=== PATIENT | female | born 1950 ===

== ENCOUNTER → 2020-02-06 10:41 | Outpatient (CLI) | payer MEDICARE, SELFPAY ==
--- NOTE | ~2020-02-06 | MM_ITS ---
EXAMINATION: MM screening young BI w girish HISTORY: Screening TECHNIQUE: Craniocaudal and mediolateral oblique 3-D tomosynthesis images were obtained and synthetic 2-D images were generated. CAD analysis was submitted and interpreted. COMPARISON: Comparison to multiple prior studies sequentially, with oldest reviewed study dated 01/06. BREAST PARENCHYMAL COMPOSITION: There are scattered areas of fibroglandular density. FINDINGS: Decreased size of left breast masses which were previously characterized as cysts by ultras ound. There is no evidence of suspicious mass, calcification, or architectural distortion to suggest malignancy in either breast. IMPRESSION: 1. No mammographic evidence of malignancy. 2. Recommend routine screening mammography in one year. BI-RADS Category 2: Benign finding(s). Reviewed, dictated and finalized at location A.
== END ==
PROVIDERS: PCP Family Medicine; Visit Provider Physician Assistant
DX: Z12.31 Encounter for screening mammogram for malignant neoplasm of breast (principal)
CPT/HCPCS: 77063; 77067

== ENCOUNTER 2021-03-30 20:00 | Emergency (ER) | payer MEDICARE, SELFPAY ==
[2021-03-30] VITALS (13 sets, daily range): BP systolic 162–210; BP diastolic 80–97; PULSE 58–78; RESP 11–23; TEMP 36.6; O2SAT 94–99
--- NOTE | ~2021-03-30 | XR_ITS ---
EXAMINATION: XR chest 1V portable DATE: 03/30/2021 22:02 INDICATION: Dizziness. TECHNIQUE: A single frontal view of the chest was obtained. COMPARISON: Chest single view 10/08/2017 FINDINGS: The chest demonstrates clear lungs without pneumonia, pleural effusion, or pneumothorax. Th e heart size is normal. IMPRESSION: 1. No acute cardiopulmonary disease. Reviewed, dictated and finalized at location A.
--- NOTE | ~2021-03-30 | CT_ITS ---
EXAMINATION: CT brain wo con DATE: 03/30/2021 23:17 INDICATION: Dizziness TECHNIQUE: Computed tomography (CT) of the head was performed without intravenous contrast. The mA wa s adjusted according to patient size. Iterative reconstruction technique was employed. Exam dose: 52 9.67 mGy-cm total exam DLP. COMPARISON: 10/08/2017 CT brain FINDINGS: Bilateral carotid siphon internal carotid artery calcifications are noted. Empty sella is again noted. No intracranial mass lesion or hemorrhage or cerebrovascular accident, midline shift or mass effect. Normal ventricular size. No subdural or epidural hematoma. The mastoid air cells and included paranasal sinuses are unremarkab le. No fracture or bone destruction of the cranial vault. IMPRESSION: Cerebral atherosclerosis Empty sella No acute intracranial abnormality or significant change since 10/08/2017 Reviewed, dictated and finalized at Location A. Reviewed, dictated and finalized at location A.
--- NOTE | 2021-03-30 21:49 | ED.GENADULT ---
HPI - General Adult General Chief complaint: Recheck/Abnormal Lab/Rx Stated complaint: High BP, lightheaded Time Seen by Provider: 03/30/21 21:45 Source: RN notes reviewed History of Present Illness HPI narrative: Patient presents emergency department from home for dizziness. Patient describes her dizziness as a feeling of lightheadedness she states has been ongoing since 6 PM this evening. She states that she took her blood pressure at home and it was elevated she came to the emergency department for further evaluation. She states she had similar episode 2 days ago and got in the urgent care and at that time have been given meclizine she denies any fevers or chills, headache, vision changes, numbness or tingling in extremities, chest pain, shortness of breath abdominal pain nausea vomiting or any other symptoms. Patient states she does have a history of hypertension and has taken her medications as prescribed Related Data Home Medications Medication Instructions Recorded Confirmed calcium carbonate 600 mg calcium 600 mg PO DAILY 09/29/19 02/17/21 (1,500 mg) tablet Allergies Allergy/AdvReac Type Severity Reaction Status Date / Time lisinopril AdvReac Unknown cough Verified 03/30/21 21:53 Review of Systems Review of Systems: Gen.: Denies fevers or chills Eyes: Denies eye pain or visual change ENT: Denies congestion Respiratory: Denies shortness of breath or cough CV: Denies chest pain or palpitations GI: Denies abdominal pain nausea, emesis or diarrhea Musculoskeletal: Denies back pain or muscle pain Neuro: Reports feeling of lightheadedness Skin: Denies rash Except as documented, all other systems reviewed and negative [facility] Past Medical History Medical History H/O bone density study (~2017) Hepatitis C antibody test negative (04/17/17) Family History Family History Father Family history of elevated blood lipids Mother Family history of elevated blood lipids Other No family history of cardiovascular disease No family history of malignant neoplasm Social History Social History Smoking status: Former smoker Alcohol intake: current Exam Narrative: APPEARANCE: No acute distress, nontoxic, resting in bed EYES: EOMI, PERRL HEENT: Normocephalic, atraumatic, OMM RESPIRATORY: No respiratory distress Clear to auscultation bilaterally with no rhonchi wheezing or rales. CARDIOVASCULAR: Regular rate and rhythm without murmurs rubs or gallops. ABDOMINAL: Soft, nontender, nondistended, no rebound or guarding MUSCULOSKELETAl: Moves all extremities. No clubbing, cyanosis or edema. NEURO: Awake and alert x 4. Following commands, speech normal, no focal deficits SKIN:: Warm, dry. No rashes lesions or abrasions PSYCHIATRIC: Normal affect/mood, Course Course Emergency Course: Patient states she [facility] the [facility] but was not prescribed and states that it did help her will be given at this time Antivert given ED states she is feeling much better Discussed with patient results of workup and diagnosis. Discussed need for follow-up with primary care, proper use of medication, and reasons to return to the emergency department. Patient understands and agrees to current treatment plan Vital Signs Vital signs: Vital Signs Temperature 98 F 03/30/21 20:04 Pulse Rate 70 03/30/21 20:04 Respiratory Rate 18 03/30/21 20:04 Blood Pressure 173/94 H 03/30/21 20:04 Pulse Oximetry 95 03/30/21 20:04 Temperature 98 F 03/30/21 20:04 Pulse Rate 58 L 03/31/21 00:16 Respiratory Rate 15 03/31/21 00:16 Blood Pressure 166/90 H 03/31/21 00:16 Pulse Oximetry 97 03/31/21 00:16 Medical Decision Making [facility] Narrative Medical decision making narrative: Patient's vertigo is felt to be likely peripheral in origin. There is no diplo
[2021-03-30 22:19] LABS: Basophils Absolute Auto 0.1 K/mm3 (0.0-0.1); Basophils Percent Auto 0.7 % (0.2-1.2); Eosinophils Absolute Auto 0.2 K/mm3 (0-0.3); Eosinophils Percent Auto 2.5 % (0-4.4); Hematocrit 41.7 % (37.0-47.0); Hemoglobin 14.1 g/dL (12.0-15.0); Immature Granulocyte Absolute 0.02 K/mm3 (0.00-0.031); Immature Granulocyte Percent A 0.3 % (0-0.5); Lymphocytes Absolute Auto 2.73 K/mm3 (0.9-3.2); Lymphocytes Percent Auto 36.5 % (18.3-44.2); Mean Corpuscular HGB Conc 33.8 g/dl (32-36); Mean Corpuscular Hemoglobin 30.9 pg (26-34); Mean Corpuscular Volume 91.4 fl (80-100); Monocytes Absolute Auto 0.6 K/mm3 (0.1-0.6); Monocytes Percent Auto 7.6 % (2.6-8.5); Neutrophils Absolute Auto 3.9 K/mm3 (1.3-6.7); Neutrophils Percent Auto 52.4 % (45.5-73.1); Platelet Count Result 202 k/mm3 (150-375); Red Blood Count 4.56 M/mm3 (4.2-5.4); Red Cell Distribution Width 12.1 % (11.5-14.5); White Blood Count 7.5 K/mm3 (4.5-10.0)
[2021-03-30 22:20] LABS: Add Urine Microscopic? NO; Appearance Urine Clear (Clear); Bilirubin Urine Negative (Negative); Blood Urine Negative (Negative); Color Urine Colorless (Yellow); Glucose Urine UA Negative (Negative); Ketones Urine Negative (Negative); Leukocyte Esterase Ur Negative LEU/UL (Negative); Nitrate Urine Negative (Negative); Protein Urine Negative (Negative); Specific Grav Ur 1.005 (1.001-1.035); Urobilinogen Urine Negative mg/dL (<2.0)
[2021-03-30 22:28] LABS: INR 0.9; Prothrombin Time 11.6 Seconds (11.1-14.7)
[2021-03-30 22:29] LABS: Partial Thromboplastin Time 27.2 SECONDS (22.3-36.8)
[2021-03-30 22:32] LABS: Alanine Aminotransferase 32 U/L (4-35); Albumin Level 4.8 g/dL (3.5-5.1); Alkaline Phosphatase 95 U/L (38-126); Anion Gap 9 mmol/L (8-16); Aspartate Amino Transferase 49 U/L (14-36); Bilirubin,Total 0.5 mg/dL (0.2-1.3); Blood Urea Nitrogen 20 mg/dL (7-17); Calcium 9.3 mg/dL (8.4-10.2); Carbon Dioxide 28 mmol/L (22-30); Chloride 100 mmol/L (98-107); Estimated Glomerular Filt Rate > 60; Glucose 113 mg/dL (65-110); Potassium 3.8 mmol/L (3.4-5.0); Sodium 137 mmol/L (137-145)
[2021-03-30] MEDS: cloNIDine HCL 0.1 MG TABLET PO (23:47)
[2021-03-31] VITALS: PULSE 59; RESP 13; O2SAT 98
[2021-03-31 00:01] VITALS: BP 157/82; PULSE 61; RESP 15; O2SAT 98
[2021-03-31 00:15] VITALS: PULSE 58; RESP 13; O2SAT 97
--- NOTE | 2021-03-31 00:15 | ECG_ITS ---
Measurements Intervals Hardy Rate: 57 P: 46 FL: 189 QRS: -9 QRSD: 90 T: 11 QT: 429 QTc: 420 Interpretive Statements SINUS BRADYCARDIA VOLTAGE CRITERIA FOR LVH NONSPECIFIC ST ELEVATION IN ANTERIOR LEADS BASELINE ARTIFACT- II, III, AVF, V1, V3-V6 BORDERLINE ECG Electronically Signed On 03-31-2021 5:47:26 CDT by Enoc Abreu D.O.
[2021-03-31 00:16] VITALS: BP 166/90; PULSE 58; RESP 15; O2SAT 97
--- NOTE | 2021-03-31 00:20 | PC.NURSE ---
Pt in ED H2, c/o elevated bp and lightheadedness. denies dizziness. seen at urgent care 2 days ago for htn and dizziness and given meclizine. takes bp med at home in am. denies chest pain. ambulatory c steady, even, unassisted gait. no s/s of distress.
[2021-03-31] MEDS: MECLIZINE HCL 12.5 MG TABLET PO (00:38)
--- NOTE | 2021-03-31 00:42 | PC.NURSE ---
Lab notified to add troponin as ordered by ED MD.
[2021-03-31 00:59] LABS: Troponin I < 0.012 ng/mL (0.000-0.034)
[2021-03-31 01:30] VITALS: BP 116/57; PULSE 56; RESP 18; O2SAT 98
== END 2021-03-31 01:32 | disposition home or self-care (01) ==
PROVIDERS: Emergency Provider Emergency Medicine; PCP Family Medicine
DX: R42 Dizziness and giddiness (principal); I10 Essential (primary) hypertension; Z87.891 Personal history of nicotine dependence; R00.1 Bradycardia, unspecified; R94.31 Abnormal electrocardiogram [ECG] [EKG]; I67.2 Cerebral atherosclerosis
CPT/HCPCS: 36415; 70450; 71045; 80053; 81003; 84484; 85025; 85610; 85730; 93005; 99284; A9270

== ENCOUNTER → 2021-04-30 12:03 | Outpatient (CLI) | payer MEDICARE, SELFPAY ==
--- NOTE | ~2021-04-30 | MM_ITS ---
EXAMINATION: MM screening young BI w girish HISTORY: Screening TECHNIQUE: Craniocaudal and mediolateral oblique 3-D tomosynthesis images were obtained and synthetic 2-D images were generated. CAD analysis was submitted and interpreted. COMPARISON: Comparison to multiple prior studies sequentially, with oldest reviewed study dated 07/2016. BREAST PARENCHYMAL COMPOSITION: Breast composed of scattered areas of fibroglandular density. FINDINGS: The right breast is stable without evidence for malignancy. There are focal asymmetries in the central-the outer aspect of the left breast on CC view. IMPRESSION: 1. Developing left breast asymmetries. 2. Additional mammographic views and possible breast ultrasound are recommended. BI-RADS Category 0: Incomplete: Needs additional imaging evaluation. Reviewed, dictated and finalized at location A. IMPRESSION: 1. Developing left breast asymmetries. 2. Additional mammographic views and possible breast ultrasound are recommended . BI-RADS Category 0: Incomplete: Needs additional imaging evaluation.
--- NOTE | ~2021-04-30 | DEXA_ITS ---
Bone Density Report Name: Obinna Espinosa Age: 70 Sex: Female Ethnicity: White Date of : 1950 Indication: postmenopausal osteoporosis; height loss; Referring Provider: Shirley Cabrera Study: Bone densitometry was performed. Exam Date: April 30, 2021 Accession number: [id number] Bone Density: Region BMD T-score Z-score Classification AP Spine (L1-L4) 0.808 -2.2 0.1 Osteopenia Femoral Neck (Left) 0.583 -2.4 -0.4 Osteopenia Total Hip (Left) 0.760 -1.5 0.2 Osteopenia Femoral Neck (Right) 0.644 -1.8 0.1 Osteopenia Total Hip (Right) 0.826 -0.9 0.7 Normal Total Hip Mean 0.793 -1.2 0.5 Osteopenia World Health Organization criteria for BMD impression classify patients as: Normal (T-score at or above -1.0), Osteopenia (T-score between -1.0 and -2.5), or Osteoporosis (T-score at or below -2.5). 10-year Fracture Risk(1): Major Osteoporotic Fracture 14% Hip Fracture 3.7% Reported Risk Factors: [place] (), Neck BMD=0.583, BMI=29.7 (1) FRAX(R) Version 3.08. Fracture probability calculated for an untreated patient. Fracture probability may be lower if the patient has received treatment. Previous Exams: Region Exam Age BMD T-score BMD Change BMD Change Date g/cm2 vs Baseline vs Previous AP Spine(L1-L4) 04/30/2021 70 0.808 -2.2 0.074* 0.077* 01/17/2018 67 0.731 -2.9 -0.003 -0.003 12/11/2015 65 0.735 -2.8 Total Hip(Left) 04/30/2021 70 0.760 -1.5 -0.010 -0.002 01/17/2018 67 0.762 -1.5 -0.009 -0.009 12/11/2015 65 0.771 -1.4 Total Hip(Right) 04/30/2021 70 0.826 -0.9 0.009 0.015 01/17/2018 67 0.812 -1.1 -0.006 -0.006 12/11/2015 65 0.818 -1.0 *Denotes significance at 95% confidence level, LSC for AP Spine = 0.022 g/cm2, LSC for Total Hip = 0.027 g/cm2 Clinical Information Provided by Patient: Has used the following medications: Vitamin D, Calcium Patient maximum height was 59 Menopause Age: 42 Does not regularly consume dairy products Onset of menses at age 10 Number of children 3 Impression: The patient has low bone mass, based on the Left Femoral Neck T-score. The patient has an estimated ten-year risk of hip fracture of 3.7% and an estimated ten-year risk of major fracture of 14%, based on the WHO FRAX algorithm. No significant bone loss was observed. Discussion: BONE DENSITY
== END ==
PROVIDERS: PCP Family Medicine; Visit Provider Physician Assistant
DX: Z12.31 Encounter for screening mammogram for malignant neoplasm of breast (principal); Z78.0 Asymptomatic menopausal state; R92.8 Other abnormal and inconclusive findings on diagnostic imaging of breast; M85.89 Other specified disorders of bone density and structure, multiple sites
CPT/HCPCS: 77063; 77067; 77080

== ENCOUNTER → 2021-05-21 09:06 | Outpatient (CLI) | payer MEDICARE, SELFPAY ==
--- NOTE | ~2021-05-21 | MM_ITS ---
EXAMINATION: MM diagnostic young LT w girish HISTORY: Left breast asymmetry on screening mammogram TECHNIQUE: Additional 3-D tomosynthesis images of the left breast were performed and synthetic 2-D im ages were generated. CAD analysis was submitted and interpreted. COMPARISON: 04/30/2021, 02/06/2020, 01/20/2019, 01/21/2018, 01/17/2018 FINDINGS: There is a return to baseline fibroglandular appearance with spot compression of the left b reast in the area questioned on screening mammogram. IMPRESSION: 1. No mammographic evidence of malignancy. 2. Recommend routine screening mammography in one year. BI-RADS Category 1: Negative Reviewed, dictated and finalized at location A. STRIPPER
== END ==
PROVIDERS: PCP Family Medicine; Visit Provider Physician Assistant
DX: R92.8 Other abnormal and inconclusive findings on diagnostic imaging of breast (principal)
CPT/HCPCS: 77061; 77065; G0279

== ENCOUNTER → 2022-06-04 14:18 | Outpatient (CLI) | payer MEDICARE, SELFPAY ==
--- NOTE | ~2022-06-04 | MM_ITS ---
EXAMINATION: MM screening [facility] BI w girish HISTORY: Screening mammogram TECHNIQUE: Craniocaudal and mediolateral oblique 3-D tomosynthesis images were obtained and synthetic 2-D images were generated. CAD analysis was submitted and interpreted. COMPARISON: 05/21/2021, 04/30/2021, 02/06/2020 BREAST PARENCHYMAL COMPOSITION: There are scattered areas of fibroglandular density. FINDINGS: No suspicious mass, calcification, or architectural distortion are identified in either meghann ast to suggest malignancy. There has been no suspicious interval change. IMPRESSION: 1. No mammographic evidence of malignancy. 2. Recommend routine screening mammography in one year. BI-RADS Category 1: Negative Reviewed, dictated and finalized at location A. [employer] SERV[employer]
== END ==
PROVIDERS: PCP Family Medicine; Visit Provider Family Medicine
DX: Z12.31 Encounter for screening mammogram for malignant neoplasm of breast (principal)
CPT/HCPCS: 77063; 77067

== ENCOUNTER 2022-08-27 10:00 | Outpatient (RCR) | payer MEDICARE, SELFPAY ==
--- NOTE | 2022-07-31 15:48 | PTOPEVAL1 ---
Assessment and note entered by Samaria Raman, PT, DPT Evaluation Information Assessment Status Evaluation Diagnosis R shoulder pain Onset 1 month Subjective Information Pt states she was playing pickleball last month. She states she felt an irritating pain in her shoulder but thought she just overworked it so she continued to play. She states now her shoulder hurts often especially with overhead movements. She reports her pain as 0/10 at rest and 4/10 with overhead motions. She reports no troubles sleeping and can even lay on her R shoulder. Reported Pain Level Pain Score 0: Self Report Assessment PT Clinical Summary Obinna Putnam) presents to therapy today for her initial evaluation with a diagnosis of R shoulder pain. Today she demonstrates great shoulder ROM that is nearly equal to her uninvolved side. She demonstrates good shoulder strength with slight weakness and pain with resistance into flexion and ext rot. Skilled physical therapy services are indicated to improve strength, pain with overhead motion, to return to pickleball without limitation , and to return to baseline function. Plan of Care Interventions Manual Therapy,Neuro Re-education,Patient/ Caregiver Educati,Therapeutic Activities, Therapeutic Exercise PT Services Indicated Yes Treatment Frequency and 1x/wk for 4 wks Duration These treatments will address the objective and functional deficits as defined above. The patient will be advanced safely and appropriately in order for the patient to progress towards his/her prior level of function. Additional exercises will be introduced and as well as a comprehensive home exercise program upon discharge, if needed, ?to ensure carryover of functional gains achieved in the clinic. This treatment plan has been reviewed and agreement upon by the patient.
--- NOTE | 2022-08-27 10:35 | PTOPDC ---
Assessment and note entered by Samaria Raman, PT, DPT Evaluation Information Assessment Status Discharge Diagnosis R shoulder pain Onset 1 month Subjective Information Pt states other days she does and feels like she is ready to start playing pickleball again and other days she states her shoulders just aches. Pt states she can lift her coffee pot and plates to the top shelf without an increase in shoulder pain . Pt reports 80-90% improvement in overall symptoms. Reported Pain Level Pain Score 3: Self Report Assessment PT Clinical Summary Obinna Caruso presents to therapy today for her progress report following 4 visits of skilled therapy to treat her R shoulder pain. Today she reports no pain most days with functional tasks. She has met or progressed well towards all of her therapy goals and no longer requires skilled therapy services at this time. She will be discharged at this time with instructions to continue her HEP and follow up with referring provider if needed. Plan of Care PT Services Indicated No Treatment Frequency and discharge Duration
== END 2022-08-27 12:42 | disposition home or self-care (01) ==
LOC: ANHGOSHPT 10:00
PROVIDERS: PCP Family Medicine; Visit Provider Nurse Practitioner
DX: M25.511 Pain in right shoulder (principal)
CPT/HCPCS: 97110; 97112; 97140; 97161; 97530

== ENCOUNTER → 2022-11-19 10:04 | Outpatient (CLI) | payer MEDICARE, SELFPAY ==
--- NOTE | ~2022-11-19 | XR_ITS ---
Right Shoulder Technique: AP and scapular Y views were obtained. Clinical History: Pain Findings: No fracture or dislocation is seen. Osseous alignment is anatomic. The glenohumeral and acr omioclavicular joint spaces are preserved. Soft tissues are unremarkable. Impression: Unremarkable right shoulder radiographs. Reviewed, dictated and finalized at [facility]. Impression: Unremarkable right shoulder radiographs.
== END ==
PROVIDERS: PCP Family Medicine; Visit Provider Family Medicine
DX: M25.511 Pain in right shoulder (principal)
CPT/HCPCS: 73030

== ENCOUNTER 2023-09-14 11:31 | Outpatient (CLI) | payer MEDICARE, SELFPAY ==
--- NOTE | ~2023-09-14 | MM_ITS ---
EXAMINATION: MM screening [facility] BI w girish HISTORY: Screening TECHNIQUE: Craniocaudal and mediolateral oblique 3-D tomosynthesis images were obtained and synthetic 2-D images were generated. CAD analysis was submitted and interpreted. COMPARISON: Comparison to multiple prior studies sequentially, with oldest reviewed study dated 01/20. BREAST PARENCHYMAL COMPOSITION: Not dense: There are scattered areas of fibroglandular density. FINDINGS: There is no evidence of suspicious mass, calcification, or architectural distortion to sugg est malignancy in either breast. There has been no suspicious interval change. IMPRESSION: 1. No mammographic evidence of malignancy. 2. Recommend routine screening mammography in one year. BI-RADS Category 1: Negative Reviewed, dictated and finalized at location A.
== END 2023-09-14 11:32 ==
PROVIDERS: PCP Family Medicine; Visit Provider Family Medicine
DX: Z12.31 Encounter for screening mammogram for malignant neoplasm of breast (principal)
CPT/HCPCS: 77063; 77067

== ENCOUNTER 2023-11-15 13:35 | Outpatient (CLI) | payer MEDICARE, SELFPAY ==
--- NOTE | ~2023-11-15 | XR_ITS ---
XR knee LT min 4V DATE: 11/15/2023 14:15 INDICATION: Left knee pain TECHNIQUE: Standing AP, PA and lateral views. Ragland view. COMPARISON: None FINDINGS: There is prominent patellar enthesopathy at the insertion of the quadriceps tendon. There i s moderate periarticular spurring of the patella. There is severe joint space narrowing and prominent vertebral spurring at the lateral compartment. There is hypertrophic change of the lateral tibial sp ine. Small suprapatellar knee joint effusion is suggested. No fracture, dislocation, periosteal reaction or bone destruction, or radiopaque intra-articular loos e body or chondrocalcinosis is noted. IMPRESSION: Osteoarthritis involving particularly severely the lateral compartment Reviewed, dictated and finalized at location B. IMPRESSION: Osteoarthritis involving particularly severely the lateral compartm ent
== END 2023-11-15 13:36 ==
PROVIDERS: PCP Family Medicine; Visit Provider Family Medicine
DX: M17.12 Unilateral primary osteoarthritis, left knee (principal)
CPT/HCPCS: 73564

== ENCOUNTER 2023-11-23 12:22 | Outpatient (CLI) | payer MEDICARE, SELFPAY ==
--- NOTE | ~2023-11-23 | XR_ITS ---
Clinical Indication: Bronchitis PA and lateral views of the chest: Comparison: 03/30/2021 Findings: The lungs are clear, without evidence of focal consolidation or pleural effusion. Cardiome diastinal silhouette is within normal limits. Bones and soft tissues are unremarkable. Impression: Normal chest. Reviewed, dictated and finalized at location . Impression: Normal chest.
== END 2023-11-23 12:23 ==
LOC: GOSHIMG 12:24
PROVIDERS: PCP Family Medicine; Visit Provider Family Medicine
DX: J40 Bronchitis, not specified as acute or chronic (principal)
CPT/HCPCS: 71046

== ENCOUNTER 2024-03-21 08:47 | Outpatient (CLI) | payer MEDICARE, SELFPAY ==
--- NOTE | ~2024-03-21 | XR_ITS ---
EXAMINATION: XR shoulder RT min 2V DATE: 03/21/2024 08:58 INDICATION: Right shoulder injury. TECHNIQUE: 4 views of right shoulder were obtained. COMPARISON: Right shoulder radiographs 11/19/2022 FINDINGS: There is superior subluxation of humeral head with narrowing of the subacromial space, cons istent with rotator cuff tear. No fracture. There is mild osteoarthritis of glenohumeral joint and mo derate osteoarthritis of acromioclavicular joint. IMPRESSION: 1. Polyarticular osteoarthritis. 2. Right rotator cuff tear. Reviewed, dictated and finalized at location A.
== END 2024-03-21 08:48 | disposition home or self-care (01) ==
PROVIDERS: PCP Family Medicine; Visit Provider Nurse Practitioner
DX: M19.011 Primary osteoarthritis, right shoulder (principal); M75.101 Unspecified rotator cuff tear or rupture of right shoulder, not specified as traumatic
CPT/HCPCS: 73030

== ENCOUNTER 2024-03-21 09:03 | Outpatient (CLI) | payer MEDICARE, SELFPAY ==
[2024-03-21 13:29] LABS: Hematocrit 42.9 % (37.0-47.0); Hemoglobin 13.7 g/dL (12.0-15.0); Mean Corpuscular HGB Conc 31.9 g/dl (32-36); Mean Corpuscular Volume 97.1 fl (80-100); Mean Platelet Volume 11.2 fl (7.4-10.4); Platelet Count Result 204 k/mm3 (150-375); Red Blood Count 4.42 M/mm3 (4.2-5.4); Red Cell Distribution Width 13.1 % (11.5-14.5); White Blood Count 5.8 K/mm3 (4.5-10.0)
[2024-03-21 14:18] LABS: Alanine Aminotransferase 25 U/L (6-35); Albumin Level 4.1 g/dL (3.5-5.1); Alkaline Phosphatase 73 U/L (38-126); Anion Gap 7 mmol/L (4-12); Aspartate Amino Transferase 65 U/L (14-36); Bilirubin,Total 0.6 mg/dL (0.2-1.3); Blood Urea Nitrogen 19 mg/dL (7-17); Carbon Dioxide 31 mmol/L (22-30); Chloride 102 mmol/L (98-107); Cholesterol 146 mg/dL (0-200); Estimated Glomerular Filt Rate > 60; Glucose 95 mg/dL (65-110); HDL Direct 73 mg/dL; Potassium 3.9 mmol/L (3.4-5.0); Sodium 140 mmol/L (137-145); Triglycerides 100 mg/dL (<150)
[2024-03-21 14:29] LABS: LDL Cholesterol Direct 50 mg/dL
[2024-03-21 17:10] LABS: Hemoglobin A1C 6.3 % (<5.7)
[2024-03-25 12:59] LABS: Vitamin D 1,25 (OH)2 Total 51 pg/mL (18-72); Vitamin D2 1,25 (OH)2 <8 pg/mL; Vitamin D3 1,25 (OH)2 51 pg/mL
== END 2024-03-21 09:04 | disposition home or self-care (01) ==
PROVIDERS: PCP Family Medicine; Visit Provider Family Medicine
DX: E55.9 Vitamin D deficiency, unspecified (principal); E66.3 Overweight; E66.9 Obesity, unspecified; E78.2 Mixed hyperlipidemia; I10 Essential (primary) hypertension; R73.03 Prediabetes; Z79.899 Other long term (current) drug therapy
CPT/HCPCS: 36415; 80053; 80061; 82652; 83036; 84443; 85027

== ENCOUNTER 2024-04-03 09:13 | Outpatient (CLI) | payer MEDICARE, SELFPAY ==
--- NOTE | ~2024-04-03 | DEXA_ITS ---
Bone Density Report Name: OUMAR GREY Age: 73 Sex: Female Ethnicity: White Date of : 1950 Indication: postmenopausal; screening for osteoporosis; height loss; Referring Provider: EDY BARNETT Study: Bone densitometry was performed. Exam Date: April 03, 2024 Accession number: [id number] Bone Density: Region BMD T-score Z-score Classification AP Spine(L1-L4) 0.803 -2.2 0.2 Osteopenia Femoral Neck (Left) 0.585 -2.4 -0.3 Osteopenia Total Hip (Left) 0.771 -1.4 0.4 Osteopenia Femoral Neck (Right) 0.646 -1.8 0.3 Osteopenia Total Hip (Right) 0.849 -0.8 1.1 Normal Total Hip Mean 0.810 -1.1 0.8 Osteopenia World Health Organization criteria for BMD impression classify patients as: Normal (T-score at or above -1.0), Osteopenia (T-score between -1.0 and -2.5), or Osteoporosis (T-score at or below -2.5). 10-year Fracture Risk(1): Major Osteoporotic Fracture 15% Hip Fracture 4.6% Reported Risk Factors: [place] (), Neck BMD=0.585, BMI=28.3 (1) FRAX(R) Version 3.08. Fracture probability calculated for an untreated patient. Fracture probability may be lower if the patient has received treatment. Clinical Information Provided by Patient: Has used the following medications: centram silver vitamin Patient maximum height was 58.0 Does not regularly consume dairy products Onset of menses at age 10 Number of children 3 Impression: The patient has low bone mass, based on the Left Femoral Neck T-score. The patient has an estimated ten-year risk of hip fracture of 4.6% and an estimated ten-year risk of major fracture of 15%, based on the WHO FRAX algorithm. Discussion: BONE DENSITY IS LOW AT ONE OR MORE SKELETAL SITES. THE PATIENT'S BMD AND CLINICAL RISK FACTORS CONTRIBUTE TO THIS PATIENT'S INCREASED RISK OF FRACTURE. This patient's lowest T-score is low at one or more skeletal sites. It meets the World Health Organization's (WHO) criteria for ?low bone mass? (T-score between -1.0 and -2.5). The patient's 10-year risk of hip fracture as calculated by FRAX exceeds the threshold where pharmacological therapy is recommended by the National Osteoporosis Foundation (NOF). However, all treatment decisions require clinical judgment and consideration of individual patient factors, including patient preferences, comorbidities, previous drug use, risk factors not captured in the FRAX model (e.g., frailty, falls, vitamin D deficiency, increased bone turnover, interval significant decline in bone density) and possible under or overestimation of fracture risk by FRAX. The patient should follow a healthful lifestyle (good nutrition with adequate calcium and vitamin D, and appropriate weight-bearing exercise). Follow-Up: Consider a repeat BMD and Vertebral Fracture Assessment (VFA) exam i
== END 2024-04-03 09:14 | disposition home or self-care (01) ==
LOC: ANHIMG 09:20
PROVIDERS: PCP Family Medicine; Visit Provider Nurse Practitioner
DX: M85.88 Other specified disorders of bone density and structure, other site (principal); M85.852 Other specified disorders of bone density and structure, left thigh; M85.851 Other specified disorders of bone density and structure, right thigh
CPT/HCPCS: 77080

== ENCOUNTER 2024-09-15 10:16 | Outpatient (CLI) | payer MEDICARE, SELFPAY ==
--- NOTE | ~2024-09-15 | MM_ITS ---
EXAMINATION: MM screening [facility] BI w girish HISTORY: Screening TECHNIQUE: Craniocaudal and mediolateral oblique 3-D tomosynthesis images were obtained and synthetic 2-D images were generated. CAD analysis was submitted and interpreted. COMPARISON: Comparison to multiple prior studies sequentially, with oldest reviewed study dated 01/20. BREAST PARENCHYMAL COMPOSITION: Not dense: There are scattered areas of fibroglandular density. FINDINGS: There has been progressive decreased size and mass of left breast in the upper outer quadra nt, consistent with benign mass. There is no evidence of suspicious mass, calcification, or web architect ural distortion to suggest malignancy in either breast. There has been no suspicious interval change. IMPRESSION: 1. No mammographic evidence of malignancy. 2. Recommend routine screening mammography in one year. BI-RADS Category 2: Benign finding(s). Reviewed, dictated and finalized at location B.
== END 2024-09-15 10:17 | disposition home or self-care (01) ==
LOC: MICIMG 10:16
PROVIDERS: PCP Family Medicine; Visit Provider Family Medicine
DX: Z12.31 Encounter for screening mammogram for malignant neoplasm of breast (principal)
CPT/HCPCS: 77063; 77067